=== PATIENT | male | born 1975 | race Caucasian/White ===

== ENCOUNTER 2020-04-01 13:08 | Outpatient (REF) | payer OTHER, SELFPAY ==
[2020-04-01 14:01] LABS: MANUAL DIFF FLAG NO
--- NOTE | 2020-04-01 14:05 | XR_ITS ---
EXAMINATION: XR HAND, RIGHT CLINICAL INFORMATION: Pain. COMPARISON: None TECHNIQUE: PA, lateral, and oblique views of the right hand. FINDINGS: The bones and soft tissues are normal. No fracture. Alignment is anatomic, with a slight ulnar positive variance. Joint spaces are maintained. The ulnar styloid is intact, and there is no peritoneal osteopenia. No erosions or soft tissue calcifications. IMPRESSION: Unremarkable right hand.
[2020-04-01 14:09] LABS: Basophils Percent Auto 0.7 % (0-2); Eosinophils Absolute Auto 0.1 X10*3/uL (0.0-0.4); Eosinophils Percent Auto 1.1 % (0-4); Hematocrit 44.2 % (42-52); Hemoglobin 14.4 g/dl (14.0-18.0); Imm Gran Abs Auto 0.02 X10*3/uL (0.00-0.03); Imm Gran Pct Auto 0.4 % (0.0-0.4); Lymphocytes Absolute Auto 1.7 X10*3/uL (1.2-4.9); Lymphocytes Percent Auto 31.2 % (20-40); Mean Corpuscular HGB Conc 32.6 g/dl (31.0-36.0); Mean Corpuscular Hemoglobin 29.6 pg (27.0-33.0); Mean Corpuscular Volume 90.9 fL (80-98); Mean Platelet Volume 9.3 fL (9.4-12.4); Monocytes Absolute Auto 0.4 X10*3/uL (0.1-1.2); Monocytes Percent Auto 6.5 % (2-11); Neutrophils Absolute Auto 3.3 X10*3/uL (2.0-8.3); Neutrophils Percent Auto 60.1 % (45-73); Platelet Count 268 X10*3/uL (160-400); Red Blood Count 4.86 X10*6/uL (4.60-5.80); Red Cell Distribution Width 11.8 % (11.0-16.0); White Blood Count 5.5 X10*3/uL (4.8-10.8)
[2020-04-01 14:42] LABS: Blood Urea Nitrogen 14 mg/dL (9-16); Calcium 9.4 mg/dL (8.4-10.2); Cholesterol 211 mg/dL; Estimated Glomerular Filt Rate > 60; Glucose Fasting 96 mg/dL (60-99); HDL Cholesterol 45 mg/dL; LDL Cholesterol Calculated 150 mg/dl; Triglycerides 83 mg/dL
[2020-04-01 14:53] LABS: Anion Gap 13 (12-20); Carbon Dioxide 27 mmol/L (22-29); Chloride 104 mmol/L (96-108); Potassium 4.6 mmol/l (3.3-5.1); Sodium 139 mmol/L (135-145)
[2020-04-01 14:59] LABS: TSH reflex Free T4 2.42 mIU/mL (0.32-4.0)
[2020-04-01 16:53] LABS: Reflex LDLD? No
== END 2020-04-01 13:09 | disposition home or self-care (01) ==
LOC: HO.LAB 13:08
PROVIDERS: PCP Internal Medicine; Visit Provider Nurse Practitioner Family
DX: I10 Essential (primary) hypertension (principal); E78.2 Mixed hyperlipidemia; M79.641 Pain in right hand
CPT/HCPCS: 36415; 73130; 80048; 80061; 84443; 85025

== ENCOUNTER 2020-05-16 12:10 | Emergency (ER) | payer OTHER, SELFPAY ==
--- NOTE | 2020-05-16 | ECG_ITS ---
Test Reason : CHEST PAIN Blood Pressure : / mmHG Vent. Rate : 089 BPM Atrial Rate : 089 BPM P-R Int : 122 ms QRS Dur : 084 ms QT Int : 348 ms P-R-T Axes : 045 052 035 degrees QTc Int : 423 ms Normal sinus rhythm Normal ECG When compared with ECG of 17-MAR-2018 17:45, No significant change was found Referred By: Generic ED Physician Electronically Signed By:JOSAFAT BACH MD
[2020-05-16 12:33] VITALS: BMI 26.6
--- NOTE | 2020-05-16 13:06 | ED_ITS ---
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 He denies any associated shortness of breath. No injury, fall. No palpitation. No lower extremity swelling. Related Data Allergies Allergy/AdvReac Type Severity Reaction Status Date / Time enalaprilat [From VASOTEC] Allergy Severe ANAPHYLAXIS Verified 05/16/20 13:25 naproxen Allergy Unknown stomach Verified 05/16/20 13:25 upset tramadol [TRAMADOL] Allergy Unknown ANXIOUS, Verified 05/16/20 13:25 vomiting Review of Systems Review of Systems: Constitutional: No Weight loss, No Fever, No Chills, No Night Sweats, No Fatigue, No Malaise ENT/Mouth: No Hearing loss, No Ear Pain, No Nasal Congestion, No Sinus Pain, No Hoarseness, No sore throat, No Rhinorrhea, No Swallowing Difficulty Eyes: No Eye Pain, No Swelling, No Redness, No Foreign Body, No Discharge, No Vision Changes Cardiovascular: + Chest Pain, No SOB, No Dyspnea on Exertion, No Orthopnea, No Edema, No Palpitations Respiratory: No Cough, No Sputum, No Wheezing, No Smoke Exposure, No Dyspnea Gastrointestinal: No Nausea, No Vomiting, No Diarrhea, No Constipation, No abdominal Pain, No Hematochezia, No Melena Genitourinary: no irregular bleeding, No Dysuria Musculoskeletal: No joint pain, No Myalgias, No Joint Swelling Skin: No Skin Lesions, No rash Neuro: No Weakness, No Numbness, No Paresthesias, No Loss of Consciousness, No Dizziness, No Headache Psych: No Anxiety/Panic Heme/Lymph: No Bruising, No Bleeding,No Lymphadenopathy Endocrine: No Polyuria, No Polydipsia, No Temperature Intolerance Yes all other systems are reviewed and are negative PMFSH Past Medical History Medical History (Updated 05/16/20 @ 15:56 by Cale Flanagan NP) HTN (hypertension) Social History Social History Alcohol intake: never Smoking Status: Light tobacco smoker Smoked in Last 30 Days: No Use of substances other than those prescribed or required for medical reasons: No Advance Directives: No Advance Directives Information Provided: No Physical Exam Vital Signs: Vital Signs: Last Vital Signs Temp 97.9 F 05/16/20 15:24 Pulse 87 05/16/20 15:24 Resp 15 05/16/20 15:24 BP 125/81 05/16/20 15:24 Pulse Ox 99 05/16/20 15:24 Body Mass Index 26.6 Reviewed Const: General: cooperative and healthy appearing; No acute distress or intoxicated appearing Nutritional Appearance: average body habitus Orientation/consciousness: patient oriented x3 HENMT: Head: Yes normal to inspection Ears: hearing grossly normal bilaterally Eyes: General: appearance normal, both eyes and all related structures V isual Mallory: normal visual mallory by confrontation Neck: Neck: Yes normal visual inspection, No positive Brudzinski's sign, No positive Kernig's sign and No tender Thyroid: Thyroid normal Chest: Chest palpation & inspection: normal inspection of the chest Resp: Effort & Inspection: normal respiratory effort Cardio: Jugular venous distension: no JVD GI: Inspection: Yes normal to inspection Percussion: Yes normal to p ercussion Auscultation: normal bowel sounds : General: Yes no CVA tenderness Back/Spine/Pelvis: Back: no CVA tenderness Skin: General skin exam: no rashes or lesions noted Neuro: General: patient oriented x3 Extrem: General: Yes normal to inspection MDM - Chest Pain MDM Narrative Medical decision making narrative: AP exam consistent with pain musculoskeletal in etiology and less cardiopulmonary. Pain reproducible on exam. Labs, chest x-ray, EKG reassuring. Patient does do a lot of strenuous activity at work where he does a lot of twisting and lifting repetitively throughout the day encouraged to do pre works stretching and warm. Clear precaution return follow- up instructions provided. Patient is stable for discharge. Differential Diagnosis Differential diagnosis: Likely atypical chest pain, costochondritis and chest pain; Unlikely fracture of rib, pneumothorax, stable angina, unstable angina pectoris, st elevation myocardial infarction and biliary colic Medical Records Data Attestation: I reviewed the patient's medical records. Lab Data Attestation: I reviewed the patient's lab results. Result diagrams: 05/16/20 14:14 05/16/20 14:14 Labs: Lab Results 05/16/20 05/16/20 05/16/20 Range/Units 14:14 14:14 14:14 WBC 6.3 (4.8-10.8) X10*3/uL RBC 5.11 (4.60-5.80) X10*6/uL Hgb 15.5 (14.0-18.0) g/dl Hct 46.5 (42-52) % MCV 91.0 (80-98) fL MCH 30.3 (27.0-33.0) pg MCHC 33.3 (31.0-36.0) g/dl RDW 12.1 (11.0-16.0) % Plt Count 279 (160-400) X10*3/uL MPV 9.5 (9.4-12.4) fL Immature Gran % (Auto) 1.0 H (0.0-0.4) % Neut % (Auto) 62.6 (45-73) % Lymph % (Auto) 30.2 (20-40) % [place] % (Auto) 5.4 (2-11) % Eos % (Auto) 0.3 (0-4) % Baso % (Auto) 0.5 (0-2) % Lymph # (Auto) 1.9 (1.2-4.9) X10*3/uL [place] # (Auto) 0.3 (0.1-1.2) X10*3/uL Eos # (Auto) 0.0 (0.0-0.4) X10*3/uL Baso # (Auto) 0.0 (0.0-0.2) X10*3/uL Abs Immat Gran (auto) 0.06 H (0.00-0.03) X10*3/uL Absolute Neuts (auto) 3.9 (2.0-8.3) X10*3/uL Absolute Nucleated RBC 0.000 (0.0-0.012) X10*3/uL Nucleated RBC % (auto) 0.0 (0.0-0.2) /100WBC Sodium 137 (135-145) mmol/L Potassium 4.9 (3.3-5.1) mmol/l Chloride 101 (96-108) mmol/L Carbon Dioxide 30 H (22-29) mmol/L Anion Gap 11 L (12-20) BUN 15 (9-16) mg/dL Creatinine 0.92 (0.5-1.4) mg/dL Estim Creat Clear Calc 102.4 Estimated GFR > 60 Random Glucose 103 (60-115) mg/dL Calcium 9.8 (8.4-10.2) mg/dL Total Bilirubin 0.4 (0.0-1.0) mg/dL AST 20 (5-37) U/L ALT 24 (0-40) U/L Alkaline Phosphatase 74 (39-117) U/L Troponin I High Sens < 3.5 (<3.5-35.0) ng/L Total Protein 8.0 (6.5-8.0) g/dL Albumin 4.8 (3.5-5.0) g/dL Imaging Data Chest x-ray: Radiologist's impression: [place] [id number] XRay Report Signed Patient: Chelsea Bustamante#: [id number] : 1975Acct:[id number] Age/Sex: 45 / MADM Date: 05/16/20 Loc: .ED Attending Dr: Ordering Physician: Cale Flanagan NP Date of Service: 05/16/20 Procedure(s): XR chest 2V Accession Number(s): [id number] cc: Cale Flanagan [employer]~ EXAMINATION: XR CHEST CLINICAL INFORMATION: Chest wall pain COMPARISON: Chest radiographs 03/17/2018, 03/01/2017 TECHNIQUE: 2 views of the chest were obtained. FINDINGS: The lungs are clear. There is no pneumothorax, pleural reaction, infiltrate, or effusion. The costophrenic sulci are clear. The heart is normal in size. The hilar and mediastinal contours are normal. Bony structures are unremarkable. XR/XR chest 2V IMPRESSION: Unremarkable examination. 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
--- NOTE | 2020-05-16 13:19 | XR_ITS ---
EXAMINATION: XR CHEST CLINICAL INFORMATION: Chest wall pain COMPARISON: Chest radiographs 03/17/2018, 03/01/2017 TECHNIQUE: 2 views of the chest were obtained. FINDINGS: The lungs are clear. There is no pneumothorax, pleural reaction, infiltrate, or effusion. The costophrenic sulci are clear. The heart is normal in size. The hilar and mediastinal contours are normal. Bony structures are unremarkable. XR/XR chest 2V IMPRESSION: Unremarkable examination.
[2020-05-16 13:20] VITALS: BP 134/89; PULSE 92; RESP 18; TEMP 36.8; O2SAT 98; BMI 26.6
[2020-05-16 13:27] VITALS: PULSE 92
[2020-05-16 14:26] LABS: MANUAL DIFF FLAG NO
[2020-05-16 14:28] LABS: Basophils Percent Auto 0.5 % (0-2); Eosinophils Percent Auto 0.3 % (0-4); Hematocrit 46.5 % (42-52); Hemoglobin 15.5 g/dl (14.0-18.0); Imm Gran Abs Auto 0.06 X10*3/uL (0.00-0.03); Lymphocytes Absolute Auto 1.9 X10*3/uL (1.2-4.9); Lymphocytes Percent Auto 30.2 % (20-40); Mean Corpuscular HGB Conc 33.3 g/dl (31.0-36.0); Mean Corpuscular Hemoglobin 30.3 pg (27.0-33.0); Mean Platelet Volume 9.5 fL (9.4-12.4); Monocytes Absolute Auto 0.3 X10*3/uL (0.1-1.2); Monocytes Percent Auto 5.4 % (2-11); Neutrophils Absolute Auto 3.9 X10*3/uL (2.0-8.3); Neutrophils Percent Auto 62.6 % (45-73); Platelet Count 279 X10*3/uL (160-400); Red Blood Count 5.11 X10*6/uL (4.60-5.80); Red Cell Distribution Width 12.1 % (11.0-16.0); White Blood Count 6.3 X10*3/uL (4.8-10.8)
[2020-05-16 14:59] LABS: Alanine Aminotransferase 24 U/L (0-40); Albumin Level 4.8 g/dL (3.5-5.0); Alkaline Phosphatase 74 U/L (39-117); Anion Gap 11 (12-20); Aspartate Amino Transferase 20 U/L (5-37); Bilirubin Total 0.4 mg/dL (0.0-1.0); Blood Urea Nitrogen 15 mg/dL (9-16); Calcium 9.8 mg/dL (8.4-10.2); Carbon Dioxide 30 mmol/L (22-29); Chloride 101 mmol/L (96-108); Creatinine Clr Calc Pharmacy 102.4; Estimated Glomerular Filt Rate > 60; Glucose Random 103 mg/dL (60-115); Potassium 4.9 mmol/l (3.3-5.1); Sodium 137 mmol/L (135-145)
[2020-05-16 15:05] LABS: Troponin-I High Sensitivity < 3.5 ng/L (<3.5-35.0)
[2020-05-16 15:24] VITALS: BP 125/81; PULSE 87; RESP 15; TEMP 36.6; O2SAT 99
== END 2020-05-16 16:33 | disposition home or self-care (01) ==
PROVIDERS: Nurse Practitioner Primary Care; Emergency Provider Emergency Medicine; PCP Internal Medicine
DX: M94.0 Chondrocostal junction syndrome [Tietze] (principal); R07.89 Other chest pain; F17.200 Nicotine dependence, unspecified, uncomplicated; Z71.6 Tobacco abuse counseling
CPT/HCPCS: 36415; 71046; 80053; 84484; 85025; 93005; 99283; 99285

== ENCOUNTER 2020-10-03 19:43 | Emergency (ER) | payer OTHER, SELFPAY ==
--- NOTE | ~2020-10-03 | CT_ITS ---
EXAMINATION: CT HEAD WITHOUT CONTRAST CLINICAL INFORMATION: Severely headache COMPARISON: None TECHNIQUE: Contiguous axial imaging was performed from the skull base to vertex without intravenous administration of contrast. This CT examination was performed using dose optimization techniques as appropriate, variously including the following: *Automated exposure control *Adjustment of mA and/or kV according to patient size (this includes techniques or standardized protocols for targeted exams where dose is matched to indication/reason for exam; i.e. extremities or head) *Use of iterative reconstruction technique DLP: 695 mGy-cm FINDINGS: There is no evidence of acute intracranial hemorrhage or territorial infarction. No abnormal mass effect or midline shift is seen. [place] to white matter differentiation is well preserved. No extra-axial fluid collections are identified. The ventricles are normal in size. There is no abnormal attenuation within the brain parenchyma. The osseous structures and soft tissues are normal. The mastoid air cells and visualized portions of the paranasal sinuses are well aerated. Bilateral moderate sized maxillary cysts or polyps CT/CT head/brain wo con IMPRESSION: No acute intracranial process seen
[2020-10-03 20:43] VITALS: BP 127/87; PULSE 87; RESP 12; TEMP 36.2; O2SAT 99; BMI 28.9
[2020-10-03 21:04] LABS: MANUAL DIFF FLAG NO
[2020-10-03 21:06] LABS: Basophils Percent Auto 0.6 % (0-2); Eosinophils Absolute Auto 0.1 X10*3/uL (0.0-0.4); Eosinophils Percent Auto 0.8 % (0-4); Hematocrit 48.7 % (42-52); Hemoglobin 15.9 g/dl (14.0-18.0); Imm Gran Abs Auto 0.06 X10*3/uL (0.00-0.03); Imm Gran Pct Auto 0.8 % (0.0-0.4); Lymphocytes Absolute Auto 2.5 X10*3/uL (1.2-4.9); Lymphocytes Percent Auto 35.4 % (20-40); Mean Corpuscular HGB Conc 32.6 g/dl (31.0-36.0); Mean Corpuscular Hemoglobin 29.7 pg (27.0-33.0); Mean Platelet Volume 9.3 fL (9.4-12.4); Monocytes Absolute Auto 0.5 X10*3/uL (0.1-1.2); Monocytes Percent Auto 6.9 % (2-11); Neutrophils Absolute Auto 3.9 X10*3/uL (2.0-8.3); Neutrophils Percent Auto 55.5 % (45-73); Platelet Count 267 X10*3/uL (160-400); Red Blood Count 5.35 X10*6/uL (4.60-5.80); Red Cell Distribution Width 11.9 % (11.0-16.0); White Blood Count 7.1 X10*3/uL (4.8-10.8)
[2020-10-03 21:21] LABS: Anion Gap 10 (12-20); Blood Urea Nitrogen 12 mg/dL (9-16); Calcium 9.4 mg/dL (8.4-10.2); Carbon Dioxide 31 mmol/L (22-29); Chloride 101 mmol/L (96-108); Estimated Glomerular Filt Rate > 60; Glucose Random 89 mg/dL (60-115); Potassium 4.3 mmol/L (3.3-5.1); Sodium 138 mmol/L (135-145)
[2020-10-03 21:24] LABS: INTERNATIONAL NORM RATIO 1.1 (0.9-1.1); Prothrombin Time 12.6 SEC (10.8-13.0)
[2020-10-03 21:28] LABS: Troponin-I High Sensitivity < 3.5 ng/L (<3.5-35.0)
[2020-10-03 21:34] LABS: Stroke Lab Use COMPLETE
--- NOTE | 2020-10-03 21:39 | ED.DIZZY ---
HPI - Dizziness General Chief Complaint: Dizziness Stated Complaint: DIZZINESS Time Seen by Provider: 10/03/20 21:38 Source: patient Mode of arrival: ambulatory Limitations: no limitations History of Present Illness MD elicited complaint: dizziness Related Data Previous Rx's Medication Instructions Recorded lisinopril 10 mg tablet 10 mg PO DAILY 90 Days #90 tab 07/15/20 prednisone 20 mg tablet 20 mg PO DAILY 9 Days #18 tab 08/05/20 Allergies Allergy/AdvReac Type Severity Reaction Status Date / Time enalaprilat [From VASOTEC] Allergy Severe ANAPHYLAXIS Verified 10/03/20 20:43 naproxen Allergy Unknown stomach Verified 10/03/20 20:43 upset tramadol [TRAMADOL] Allergy Unknown ANXIOUS, Verified 10/03/20 20:43 vomiting PMFSH Past Medical History Medical History (Updated 08/06/20 @ 09:18 by Liss Hernandez NP) HTN (hypertension) Social History Social History Alcohol intake: never Smoking Status: Light tobacco smoker Advance Directives: No Advance Directives Information Provided: No Physical Exam Vital Signs: Vital Signs: Last Vital Signs Temp 97.1 F 10/03/20 20:43 Pulse 87 10/03/20 20:43 Resp 12 10/03/20 20:43 BP 127/87 10/03/20 20:43 Pulse Ox 99 10/03/20 20:43 Body Mass Index 28.9 MDM - Dizziness Lab Data Result diagrams: 10/03/20 20:59 10/03/20 20:59 Labs: Lab Results 10/03/20 10/03/20 10/03/20 Range/Units 20:59 20:59 20:59 WBC 7.1 (4.8-10.8) X10*3/uL RBC 5.35 (4.60-5.80) X10*6/uL Hgb 15.9 (14.0-18.0) g/dl Hct 48.7 (42-52) % MCV 91.0 (80-98) fL MCH 29.7 (27.0-33.0) pg MCHC 32.6 (31.0-36.0) g/dl RDW 11.9 (11.0-16.0) % Plt Count 267 (160-400) X10*3/uL MPV 9.3 L (9.4-12.4) fL Immature Gran % (Auto) 0.8 H (0.0-0.4) % Neut % (Auto) 55.5 (45-73) % Lymph % (Auto) 35.4 (20-40) % [place] % (Auto) 6.9 (2-11) % Eos % (Auto) 0.8 (0-4) % Baso % (Auto) 0.6 (0-2) % Lymph # (Auto) 2.5 (1.2-4.9) X10*3/uL [place] # (Auto) 0.5 (0.1-1.2) X10*3/uL Eos # (Auto) 0.1 (0.0-0.4) X10*3/uL Baso # (Auto) 0.0 (0.0-0.2) X10*3/uL Abs Immat Gran (auto) 0.06 H (0.00-0.03) X10*3/uL Absolute Neuts (auto) 3.9 (2.0-8.3) X10*3/uL Absolute Nucleated RBC 0.000 (0.0-0.012) X10*3/uL Nucleated RBC % (auto) 0.0 (0.0-0.2) /100WBC PT 12.6 (10.8-13.0) SEC INR 1.1 (0.9-1.1) Sodium 138 (135-145) mmol/L Potassium 4.3 (3.3-5.1) mmol/L Chloride 101 (96-108) mmol/L Carbon Dioxide 31 H (22-29) mmol/L Anion Gap 10 L (12-20) BUN 12 (9-16) mg/dL Creatinine 0.92 (0.5-1.4) mg/dL Estim Creat Clear Calc 113.0 Estimated GFR > 60 Random Glucose 89 (60-115) mg/dL Calcium 9.4 (8.4-10.2) mg/dL Troponin I High Sens (<3.5-35.0) ng/L 10/03/20 Range/Units 20:59 WBC (4.8-10.8) X10*3/uL RBC (4.60-5.80) X10*6/uL Hgb (14.0-18.0) g/dl Hct (42-52) % MCV (80-98) fL MCH (27.0-33.0) pg MCHC (31.0-36.0) g/dl RDW (11.0-16.0) % Plt Count (160-400) X10*3/uL MPV (9.4-12.4) fL Immature Gran % (Auto) (0.0-0.4) % Neut % (Auto) (45-73) % Lymph % (Auto) (20-40) % [place] % (Auto) (2-11) % Eos % (Auto) (0-4) % Baso % (Auto) (0-2) % Lymph # (Auto) (1.2-4.9) X10*3/uL [place] # (Auto) (0.1-1.2) X10*3/uL Eos # (Auto) (0.0-0.4) X10*3/uL Baso # (Auto) (0.0-0.2) X10*3/uL Abs Immat Gran (auto) (0.00-0.03) X10*3/uL Absolute Neuts (auto) (2.0-8.3) X10*3/uL Absolute Nucleated RBC (0.0-0.012) X10*3/uL Nucleated RBC % (auto) (0.0-0.2) /100WBC PT (10.8-13.0) SEC INR (0.9-1.1) Sodium (135-145) mmol/L Potassium (3.3-5.1) mmol/L Chloride (96-108) mmol/L Carbon Dioxide (22-29) mmol/L Anion Gap (12-20) BUN (9-16) mg/dL Creatinine (0.5-1.4) mg/dL Estim Creat Clear Calc Estimated GFR Random Glucose (60-115) mg/dL Calcium (8.4-10.2) mg/dL Troponin I High Sens < 3.5 (<3.5-35.0) ng/L Discharge Plan Discharge Prescriptions: No Action lisinopril 10 mg tablet 10 mg PO DAILY 90 Days Qty: 90 RF: 3 prednisone 20 mg tablet 20 mg PO DAILY 9 Days Qty: 18 RF: 0
[2020-10-03 21:46] VITALS: BP 133/97; PULSE 85; RESP 18; O2SAT 99
[2020-10-03 23:18] VITALS: BP 135/89; PULSE 83; RESP 19; TEMP 36.8; O2SAT 100
--- NOTE | 2020-10-03 23:43 | ED.HA ---
HPI - Headache General Chief Complaint: Dizziness Stated Complaint: DIZZINESS Time Seen by Provider: 10/03/20 21:38 Source: patient Mode of arrival: ambulatory Limitations: no limitations History of Present Illness HPI Narrative: Patient history of hypertension and migraine headaches notice headache top of the head since morning around 08:00 today gradual onset, no thunderclap headache, patient had similar headache in 2017 when he had a CTA head done which was negative patient feel funny in the head evaluated urgent care center blood pressure was checked which was slightly on higher side 140/99 sent patient here for further evaluation no injury no vomiting no nausea no photosensitivity no balance problems no focal deficits MD elicited complaint: headache and migraine Related Data Previous Rx's Medication Instructions Recorded lisinopril 10 mg tablet 10 mg PO DAILY 90 Days #90 tab 07/15/20 prednisone 20 mg tablet 20 mg PO DAILY 9 Days #18 tab 08/05/20 Allergies Allergy/AdvReac Type Severity Reaction Status Date / Time enalaprilat [From VASOTEC] Allergy Severe ANAPHYLAXIS Verified 10/03/20 20:43 naproxen Allergy Unknown stomach Verified 10/03/20 20:43 upset tramadol [TRAMADOL] Allergy Unknown ANXIOUS, Verified 10/03/20 20:43 vomiting Review of Systems Review of Systems: Constitutional : No Weight loss, No Fever, No Chills ENT/Mouth : No sore throat, No Rhinorrhea Eyes: No Eye Pain, No Swelling Cardiovascular : No Chest Pain, no palpitations Respiratory : No Cough, No Sputum, no shortness of breath Gastrointestinal : no Nausea, No Vomiting, No Diarrhea, No abdominal Pain, no black stools Genitourinary : No Dysuria, No Urinary Frequency Musculoskeletal : No joint pain, No Myalgias, No Joint Swelling Skin : No Skin Lesions, No rash Neuro : No Weakness, No Numbness, + Dizziness, +Headache Psych : No Anxiety/Panic, No Depression Heme/Lymph: No Bruising, No Lymphadenopathy Endocrine : No Polyuria, No Polydipsia All other systems reviewed and are negative [facility] Past Medical History Medical History HTN (hypertension) Social History Social History Alcohol intake: never Smoking Status: Unknown if ever smoked Use of substances other than those prescribed or required for medical reasons: No Advance Directives: No Advance Directives Information Provided: No Physical Exam Vital Signs: Vital Signs: Last Vital Signs Temp 98.3 F 10/03/20 23:18 Pulse 83 10/03/20 23:18 Resp 19 10/03/20 23:18 BP 135/89 10/03/20 23:18 Pulse Ox 100 10/03/20 23:18 Body Mass Index 28.9 Const: General: comfortable and no acute distress Orientation/consciousness: patient oriented x3 HENMT: Head: Yes normal to inspection, Yes normocephalic and Yes atraumatic Ears: hearing grossly normal bilaterally General nose exam: Normal external nose present Mouth: Normal oral and palatal mucosa present Eyes: General: appearance normal, both eyes and all related structures Conjunctivae: conjunctivae normal Sclerae: sclerae normal Pupils: Equal, round and reactive pupils present Neck: Neck: Yes normal visual inspection, No midline deformity and Yes no JVD Carotids: normal carotid upstroke and no bruits Chest: Chest palpation & inspection: normal inspection of the chest and normal palpation of entire chest wall Resp: Effort & Inspection: normal respiratory effort Auscultation: clear to auscultation bilaterally Cardio: Palpation: normal PMI Rate: regular rate Rhythm: regular rhythm Heart sounds: S1 normal heart sound present and S2 normal heart sound present Peripheral pulses: Peripheral pulses 2+ throughout GI: Inspection: Yes normal to inspection Palpation (GI): Soft to palpation and nontender : General: Yes no CVA tenderness Back/Spine/Pelvis: Back: no CVA tenderness Thoracic/Lumbar Spine: thoracic and lumbar spine normal to inspection Skin: General skin exam: no rashes or lesions noted Neuro: General: patient oriented x3, gait normal, tone normal, moves all extremities, Normal light touch and pain sensation, no focal motor deficits and CN's II-XI intact bilaterally Cranial nerves: Yes Equal, round and reactive pupils present Coordination: [id number] test normal, tandem gait normal, does not sway with eyes open and Romberg test negative MDM - Headache MDM Narrative Medical decision making narrative: Patient with gradual onset of headache with history of migraine slightly elevated blood pressure CT scan is negative for any acute bleed patient had a CTA done in 2017 which was negative for any aneurysm or bleed. Patient responded to Imitrex headache is gone and patient feeling much better likely complex migraine patient advised to follow-up PCP about blood pressure control Differential Diagnosis Differential diagnosis: Likely migraine, subarachnoid hemorrhage and headache Lab Data Attestation: I reviewed the patient's lab results. Result diagrams: 10/03/20 20:59 10/03/20 20:59 Labs: Lab Results 10/03/20 10/03/20 10/03/20 Range/Units 20:59 20:59 20:59 WBC 7.1 (4.8-10.8) X10*3/uL RBC 5.35 (4.60-5.80) X10*6/uL Hgb 15.9 (14.0-18.0) g/dl Hct 48.7 (42-52) % MCV 91.0 (80-98) fL MCH 29.7 (27.0-33.0) pg MCHC 32.6 (31.0-36.0) g/dl RDW 11.9 (11.0-16.0) % Plt Count 267 (160-400) X10*3/uL MPV 9.3 L (9.4-12.4) fL Immature Gran % (Auto) 0.8 H (0.0-0.4) % Neut % (Auto) 55.5 (45-73) % Lymph % (Auto) 35.4 (20-40) % [place] % (Auto) 6.9 (2-11) % Eos % (Auto) 0.8 (0-4) % Baso % (Auto) 0.6 (0-2) % Lymph # (Auto) 2.5 (1.2-4.9) X10*3/uL [place] # (Auto) 0.5 (0.1-1.2) X10*3/uL Eos # (Auto) 0.1 (0.0-0.4) X10*3/uL Baso # (Auto) 0.0 (0.0-0.2) X10*3/uL Abs Immat Gran (auto) 0.06 H (0.00-0.03) X10*3/uL Absolute Neuts (auto) 3.9 (2.0-8.3) X10*3/uL Absolute Nucleated RBC 0.000 (0.0-0.012) X10*3/uL Nucleated RBC % (auto) 0.0 (0.0-0.2) /100WBC PT 12.6 (10.8-13.0) SEC INR 1.1 (0.9-1.1) Sodium 138 (135-145) mmol/L Potassium 4.3 (3.3-5.1) mmol/L Chloride 101 (96-108) mmol/L Carbon Dioxide 31 H (22-29) mmol/L Anion Gap 10 L (12-20) BUN 12 (9-16) mg/dL Creatinine 0.92 (0.5-1.4) mg/dL Estim Creat Clear Calc 113.0 Estimated GFR > 60 Random Glucose 89 (60-115) mg/dL Calcium 9.4 (8.4-10.2) mg/dL Troponin I High Sens (<3.5-35.0) ng/L 10/03/20 Range/Units 20:59 WBC (4.8-10.8) X10*3/uL RBC (4.60-5.80) X10*6/uL Hgb (14.0-18.0) g/dl Hct (42-52) % MCV (80-98) fL MCH (27.0-33.0) pg MCHC (31.0-36.0) g/dl RDW (11.0-16.0) % Plt Count (160-400) X10*3/uL MPV (9.4-12.4) fL Immature Gran % (Auto) (0.0-0.4) % Neut % (Auto) (45-73) % Lymph % (Auto) (20-40) % [place] % (Auto) (2-11) % Eos % (Auto) (0-4) % Baso % (Auto) (0-2) % Lymph # (Auto) (1.2-4.9) X10*3/uL [place] # (Auto) (0.1-1.2) X10*3/uL Eos # (Auto) (0.0-0.4) X10*3/uL Baso # (Auto) (0.0-0.2) X10*3/uL Abs Immat Gran (auto) (0.00-0.03) X10*3/uL Absolute Neuts (auto) (2.0-8.3) X10*3/uL Absolute Nucleated RBC (0.0-0.012) X10*3/uL Nucleated RBC % (auto) (0.0-0.2) /100WBC PT (10.8-13.0) SEC INR (0.9-1.1) Sodium (135-145) mmol/L Potassium (3.3-5.1) mmol/L Chloride (96-108) mmol/L Carbon Dioxide (22-29) mmol/L Anion Gap (12-20) BUN (9-16) mg/dL Creatinine (0.5-1.4) mg/dL Estim Creat Clear Calc Estimated GFR Random Glucose (60-115) mg/dL Calcium (8.4-10.2) mg/dL Troponin I High Sens < 3.5 (<3.5-35.0) ng/L Discharge Plan Discharge Clinical Impression: Migraine equivalent Patient Disposition: Home, Self-Care Instructions: Migraine Headache (ED) Additional Instructions: You likely have migraine headache. Keep an eye on your blood pressure check blood pressure 2 times daily at least before you take the medication , it should be less than 140/90 if it is higher than that, increase the dose of lisinopril to 20 mg daily and follow-up with your PCP Rest at home Report to ER if worsening of headache Prescriptions: No Action lisinopril 10 mg tablet 10 mg PO DAILY 90 Days Qty: 90 RF: 3 prednisone 20 mg tablet 20 mg PO DAILY 9 Days Qty: 18 RF: 0 Interventions: ED Discharge Assessment Last Done: 10/03/20 23:51 Discharge Date/Time: 10/03/20 23:51
== END 2020-10-03 23:51 | disposition home or self-care (01) ==
PROVIDERS: Emergency Provider Internal Medicine; PCP Internal Medicine
DX: G43.109 Migraine with aura, not intractable, without status migrainosus (principal); R42 Dizziness and giddiness; Z79.899 Other long term (current) drug therapy
CPT/HCPCS: 36415; 70450; 80048; 84484; 85025; 85610; 96372; 99284; J3030

== ENCOUNTER 2021-06-28 18:24 | Outpatient (REF) | payer OTHER, SELFPAY ==
[2021-06-28 19:28] LABS: Influenza A PCR NEGATIVE (Negative); Influenza B PCR NEGATIVE (Negative); Resp Syncy Virus RNA Qual PCR NEGATIVE (Negative); SARS COV2 PCR INHOUSE NEGATIVE (Negative)
== END 2021-06-28 18:25 | disposition home or self-care (01) ==
LOC: HO.LNP 18:24
PROVIDERS: Visit Provider Physician Assistant Medical
DX: J06.9 Acute upper respiratory infection, unspecified (principal); Z20.822 Contact with and (suspected) exposure to COVID-19
CPT/HCPCS: 0241U

== ENCOUNTER 2021-10-06 11:49 | Outpatient (REF) | payer OTHER, SELFPAY ==
--- NOTE | ~2021-10-06 | XR_ITS ---
EXAMINATION: XR LUMBOSACRAL SPINE CLINICAL INFORMATION: Low back pain. COMPARISON: None TECHNIQUE: Three views of the lumbosacral spine. FINDINGS: There are 5 [id number] lumbar vertebrae. Bony texture and alignment is satisfactory. There is mild narrowing of the L5-S1 disc space. There is some sclerosis about the right L5-S1 facet consistent with facet arthropathy. No significant sacroiliac joint abnormality is seen. Pedicles intact. XR/XR lumbar spine 2-3V IMPRESSION: Degenerative change L5-S1 disc space level. No acute fracture, spondylolisthesis, or spondylolysis.
== END 2021-10-06 11:50 | disposition home or self-care (01) ==
LOC: HO.XRAY 11:49
PROVIDERS: PCP Internal Medicine; Visit Provider Nurse Practitioner Acute Care
DX: M54.50 Low back pain, unspecified (principal)
CPT/HCPCS: 72100

== ENCOUNTER 2021-10-07 08:11 | Outpatient (REF) | payer OTHER, SELFPAY ==
[2021-10-07 08:22] LABS: MANUAL DIFF FLAG NO
[2021-10-07 09:25] LABS: Basophils Percent Auto 0.5 % (0-2); Eosinophils Absolute Auto 0.1 X10*3/uL (0.0-0.4); Eosinophils Percent Auto 1.3 % (0-4); Hematocrit 46.3 % (42.0-52.0); Hemoglobin 15.1 g/dl (14.0-18.0); Imm Gran Abs Auto 0.03 X10*3/uL (0.00-0.03); Imm Gran Pct Auto 0.4 % (0.0-0.4); Lymphocytes Absolute Auto 2.5 X10*3/uL (1.2-4.9); Lymphocytes Percent Auto 33.1 % (20-40); Mean Corpuscular HGB Conc 32.6 g/dl (31.0-36.0); Mean Corpuscular Hemoglobin 30.2 pg (27.0-33.0); Mean Corpuscular Volume 92.6 fL (80.0-98.0); Mean Platelet Volume 9.6 fL (9.4-12.4); Monocytes Absolute Auto 0.6 X10*3/uL (0.1-1.2); Monocytes Percent Auto 8.1 % (2-11); Neutrophils Absolute Auto 4.3 x10*3/uL (2.0-8.3); Neutrophils Percent Auto 56.6 % (45-73); Platelet Count 308 X10*3/uL (160-400); Red Cell Distribution Width 12.5 % (11.0-16.0); White Blood Count 7.5 X10*3/uL (4.8-10.8)
[2021-10-07 09:48] LABS: Alanine Aminotransferase 24 U/L (0-40); Albumin Level 4.7 g/dL (3.5-5.0); Alkaline Phosphatase 72 U/L (39-117); Anion Gap 15 (12-20); Aspartate Amino Transferase 23 U/L (5-37); Bilirubin Total 0.7 mg/dL (0.0-1.0); Blood Urea Nitrogen 15 mg/dL (9-16); Calcium 9.9 mg/dL (8.4-10.2); Carbon Dioxide 27 mmol/L (22-29); Chloride 103 mmol/L (96-108); Cholesterol 260 mg/dL; Estimated Glomerular Filt Rate > 60; Glucose Random 98 mg/dL (60-115); HDL Cholesterol 50 mg/dL; LDL Cholesterol Calculated 187 mg/dl; Lipase 20 U/L (8-78); Potassium 5.1 mmol/L (3.3-5.1); Sodium 140 mmol/L (135-145); Total Protein 8.1 g/dL (6.5-8.0); Triglycerides 115 mg/dL
== END 2021-10-07 08:12 | disposition home or self-care (01) ==
LOC: HO.LAB 08:11
PROVIDERS: Absent Provider Nurse Practitioner Acute Care; PCP Internal Medicine; Visit Provider Internal Medicine
DX: R10.11 Right upper quadrant pain (principal)
CPT/HCPCS: 36415; 80053; 80061; 83690; 85025

== ENCOUNTER 2021-12-07 08:31 | Outpatient (REF) | payer OTHER, SELFPAY ==
--- NOTE | ~2021-12-07 | US_ITS ---
EXAMINATION: US ABDOMEN COMPLETE CLINICAL INFORMATION: Right upper quadrant pain. COMPARISON: None TECHNIQUE: Real-time imaging of the abdominal viscera. FINDINGS: PANCREAS: Normal. ABDOMINAL AORTA: The proximal, mid, and distal segments are normal in caliber. INFERIOR VENA CAVA: Visualized portions are normal. LIVER: Liver echotexture is increased probably representing fatty infiltration. There is a hypoechoic area adjacent to the gallbladder, characteristic location of focal fatty sparing. No other focal hepatic lesion. There is no intrahepatic biliary duct dilatation seen. GALLBLADDER: Normal. The gallbladder is physiologically distended without evidence of stones, sludge, polyps, wall thickening or pericholecystic fluid. COMMON BILE DUCT: Normal in caliber measuring 0.4 cm in diameter. RIGHT KIDNEY: Normal. No hydronephrosis. No renal calculi or focal parenchymal lesions. The kidney measures 10.7 cm in maximum dimension. LEFT KIDNEY: Normal. No hydronephrosis. No renal calculi or focal parenchymal lesions. The kidney measures 10.7 cm in maximum dimension. SPLEEN: Normal. The spleen measures 9.2 cm in maximum dimension. FREE FLUID: None. US/US abdomen complete IMPRESSION: Fatty liver.
--- NOTE | ~2021-12-07 | XR_ITS ---
EXAMINATION: XR THORACOLUMBAR SPINE CLINICAL INFORMATION: Pain COMPARISON: None TECHNIQUE: 3 views of the thoracic spine including swimmer's view FINDINGS: Bone alignment is normal. No fracture or dislocation is seen. There is degenerative spondylosis of the lower thoracic spine. Disc spaces are normal. Paraspinal soft tissues are normal. XR/XR thoracic spine 2V IMPRESSION: Mild spondylosis of the lower thoracic spine.
== END 2021-12-07 08:32 | disposition home or self-care (01) ==
LOC: HO.US 08:31
PROVIDERS: PCP Internal Medicine; Visit Provider Nurse Practitioner Acute Care
DX: M54.9 Dorsalgia, unspecified (principal); R10.11 Right upper quadrant pain
CPT/HCPCS: 72070; 76700

== ENCOUNTER 2022-09-14 13:51 | Outpatient (REF) | payer OTHER, SELFPAY ==
--- NOTE | ~2022-09-14 | XR_ITS ---
EXAMINATION: XR FOOT, RIGHT CLINICAL INFORMATION: Right foot pain COMPARISON: None available. TECHNIQUE: AP, lateral, and oblique views of the right foot. FINDINGS: Possible periosteal reaction at the base of the third metatarsal may reflect nondisplaced stress fracture. Remaining joint spaces are preserved. XR/XR foot RT 2V IMPRESSION: Possible periosteal reaction at the base of the third metatarsal may reflect nondisplaced stress fracture. Correlation with point tenderness is recommended. Consider MRI for further evaluation.
--- NOTE | ~2022-09-14 | US_ITS ---
EXAMINATION: US ABDOMEN COMPLETE CLINICAL INFORMATION: Right upper quadrant pain. COMPARISON: Ultrasound abdomen complete 12/07/2021. TECHNIQUE: Real-time imaging of the abdominal viscera. FINDINGS: PANCREAS: Normal. ABDOMINAL AORTA: Visualized portions are normal. INFERIOR VENA CAVA: Visualized portions are normal. LIVER: Increased parenchymal echogenicity with focal sparing adjacent to the gallbladder. No suspicious focal lesion. No intrahepatic biliary ductal dilatation. GALLBLADDER: Normal. The gallbladder is physiologically distended without evidence of stones, sludge, polyps, wall thickening or pericholecystic fluid. COMMON BILE DUCT: Normal in caliber measuring 0.6 cm in diameter. RIGHT KIDNEY: Normal. No hydronephrosis. No renal calculi or focal parenchymal lesions. The kidney measures 10.3 cm in maximum dimension. LEFT KIDNEY: Normal. No hydronephrosis. No renal calculi or focal parenchymal lesions. The kidney measures 10.1 cm in maximum dimension. SPLEEN: Normal. The spleen measures 9.8 cm in maximum dimension. FREE FLUID: None. US/US abdomen complete IMPRESSION: Increased liver parenchyma echogenicity suggestive of hepatocellular disease or hepatic steatosis. Otherwise, normal examination.
== END 2022-09-14 13:52 | disposition home or self-care (01) ==
LOC: HO.US 13:51
PROVIDERS: PCP Internal Medicine; Visit Provider Internal Medicine
DX: R10.11 Right upper quadrant pain (principal); M79.671 Pain in right foot
CPT/HCPCS: 73620; 76700

== ENCOUNTER 2022-11-01 08:52 | Outpatient (REF) | payer OTHER, SELFPAY ==
--- NOTE | ~2022-11-01 | MR_ITS ---
EXAMINATION: MR FOOT WITHOUT CONTRAST, RIGHT CLINICAL INFORMATION: Dorsal right foot pain with walking. Pain and swelling. COMPARISON: Right foot radiographs dated 09/14/2022. TECHNIQUE: Multisequence MR imaging of the right foot was obtained without contrast on a high-field strength scanner. FINDINGS: BONE: Articular cartilage thinning with areas of full-thickness loss and underlying subchondral cystic change along the plantar aspect of the 3rd tarsometatarsal joint. No acute fracture. No stress reaction or fracture. No concerning lytic or blastic osseous lesion. No additional abnormal marrow signal. MUSCLES/TENDONS: Mild edema along the myotendinous junction of the abductor hallucis, consistent with a mild strain. No measurable defect. LIGAMENTS: Intact Lisfranc ligament. The plantar plates are intact. SOFT TISSUES: No abnormal soft tissue mass or fluid collection. MR/MR foot RT wo con IMPRESSION: 1. Mild strain of the abductor hallucis myotendinous junction. 2. 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 3. No acute osseous abnormality.
== END 2022-11-01 08:53 | disposition home or self-care (01) ==
LOC: HO.MRI 08:52
PROVIDERS: PCP Internal Medicine; Visit Provider Internal Medicine
DX: M79.671 Pain in right foot (principal); M84.30XA Stress fracture, unspecified site, initial encounter for fracture; X58.XXXA Exposure to other specified factors, initial encounter; Y93.9 Activity, unspecified; Y92.9 Unspecified place or not applicable; Y99.9 Unspecified external cause status
CPT/HCPCS: 73718

== ENCOUNTER 2022-11-06 10:16 | Emergency (ER) | payer OTHER, SELFPAY ==
--- NOTE | ~2022-11-06 | XR_ITS ---
EXAMINATION: XR CHEST CLINICAL INFORMATION: Chest pressure with increased coughing COMPARISON: None available. TECHNIQUE: Frontal view of the chest was obtained. FINDINGS: No significant abnormality is noted involving the heart, lungs, mediastinum, bony thorax or soft tissues. XR/XR chest 1V IMPRESSION: Unremarkable chest examination
--- NOTE | 2022-11-06 10:19 | ECG_ITS ---
Test Reason : CHEST PRESSURE Blood Pressure : / mmHG Vent. Rate : 094 BPM Atrial Rate : 094 BPM P-R Int : 126 ms QRS Dur : 074 ms QT Int : 338 ms P-R-T Axes : 031 043 023 degrees QTc Int : 422 ms Normal sinus rhythm Normal ECG When compared with ECG of 16-MAY-2020 12:35, No significant change was found Referred By: Generic ED Physician Electronically Signed By:DOLORES DAWKINS
[2022-11-06 10:20] VITALS: BP 143/89; PULSE 106; RESP 16; TEMP 36.6; O2SAT 96; BMI 26.5
--- NOTE | 2022-11-06 10:53 | ED_ITS ---
HPI - General Adult General Chief complaint: General Medical Stated complaint: Chest pressure/Allergies Time Seen by Provider: 11/06/22 10:52 Source: patient and family Limitations: no limitations History of Present Illness HPI narrative: 47-year-old male who presents to the ER with family member with a week-long history of nasal congestion cough worsening allergies. Family patient states longstanding history of allergies but no relief with [id number] medications. Patient is not prescribed any prescription strength allergy medication. Patient states cough is productive for sputum that is yellow in nature no known sick contacts. Patient denies tobacco use or alcohol use. Symptoms mild to moderate. At times patient has some chest wall discomfort with coughing. No recent travel history. No other complaints at this time Related Data Previous Rx's Medication Instructions Recorded acetaminophen 500 mg tablet 1,000 mg PO Q6H PRN pain #30 tabs 10/06/21 (Acetaminophen Extra Strength) ibuprofen 600 mg tablet 600 mg PO Q8H PRN pain #30 tabs 10/06/21 lisinopril 10 mg tablet 10 mg PO DAILY 90 days #90 tabs 08/07/22 omeprazole 20 mg capsule,delayed 20 mg PO DAILY 90 days #90 caps 08/23/22 release fexofenadine 180 mg tablet 180 mg PO DAILY #30 tabs 11/06/22 (Lauryn Allergy) prednisone 20 mg tablet 40 mg PO DAILY 5 days #10 tabs 11/06/22 Allergies Allergy/AdvReac Type Severity Reaction Status Date / Time enalaprilat [From VASOTEC] Allergy Severe ANAPHYLAXIS Verified 08/23/22 17:24 naproxen Allergy Unknown stomach Verified 08/23/22 17:24 upset tramadol [TRAMADOL] Allergy Unknown ANXIOUS, Verified 08/23/22 17:24 vomiting Review of Systems Review of Systems: General: No fever, no chills Ophthalmology: No vision changes, no discharge ENT: No sore throat, no ear pain Cardiovascular: Positive chest wall pain with coughing, no shortness of breath Respiratory: Positive cough, positive sputum production Muscle skeletal: No malaise, no back pain, no neck pain, no extremity pain GI: No abdominal pain: no nausea vomiting, no diarrhea : No dysuria, no urgency, no frequency Psychiatric: No depression, no suicidal ideation, no homicidal ideation Skin: No rash Immunology: No immunocompromised Hematology: No bleeding, no bruising PMFSH Past Medical History Source: obtained from family Medical History Dyslipidemia Essential hypertension Headache HTN (hypertension) Surgical History No pertinent past surgical history Family History Family History Father Diabetes Hypertension Mother Diabetes Other Mental health disorder Substance use disorder Social History Social History Housing: Apartment Alcohol intake: never Patient Tobacco Use Status: Never used Tobacco Smoked in Last 30 Days: No e-Cigarette/Vaping Use: Never Used Second Hand Smoke Exposure: No Use of substances other than those prescribed or required for medical reasons: No Advance Directives: No Advance Directives Information Provided: Yes service: No Current occupational status: employed 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 Cognitive needs: No Hearing needs: No Vision needs: Yes (glasses) Physical Exam ED Vital Signs: Vital Signs - 24 hr 11/06/22 10:20 Temperature 97.8 F Pulse Rate 106 H Respiratory Rate 16 Blood Pressure 143/89 H Pulse Oximetry 96 Oxygen Delivery Method Room Air BMI result Body Mass Index 26.5 General appearance: Awake, alert, cooperative, in no acute distress Skin: Warm, dry, no rash Eyes: PERRL, EOMI, no icterus ENT: Oropharynx normal, uvula midline, sinus pressure nasal discharge, no evidence of peritonsillar abscess no erythema or exudate Neck: Soft supple full range of motion, no nuchal rigidity Pulmonary: Breath sounds clear to auscultation bilaterally, no accessory muscle use Cardiovascular: Regular rate and rhythm, no murmurs and rubs Abdomen: Soft nontender, no rebound or guarding, positive bowel sounds Extremities: No deformity, nontender, no peripheral edema noted Neuro: Alert oriented x3, no focal deficit Psych: Normal affect Course Course Course Narrative: Seasonal allergies Viral URI Bronchitis Pneumonia 47-year-old male presents to the ER with complaints of nasal congestion associated cough for 1-2 weeks. Worsening over the past 24-48 hours. No recent sick contacts. Symptoms seem consistent with seasonal allergies at this time. Chest x-rays pending rule out pneumonia respiratory swab for COVID-19 a and influenza is also pending. Low suspicion for ACS at this time. Patient does have a history of hypertension which she is on lisinopril for he believes. ECG results Normal sinus rhythm Normal ECG When compared with ECG of 16-MAY-2020 12:35, No significant change was found 13:36 Chest x-rays negative. Respiratory swab was also negative. Patient's symptoms are most likely secondary to seasonal allergies with questionable underlying viral illness. Will treat symptoms at this time. Medical Decision Making Lab Data Labs: Lab Results 11/06/22 11/06/22 Range/Units 10:30 10:30 COVID-19 (MARCIA) Negative (Negative) COVID-19 Clin Com See Note Influenza Type A (INDIGO) Negative (Negative) Influenza Type B (INDIGO) Negative (Negative) Influenza A & B Note See Note Radiology Impression Discussion of test interpretation with radiology: I have reviewed the radiologist's reading. Radiologist Impression: [address] [address] XRay Report Signed Patient: Salo Bustamante MR#: [id number] : 1975 Acct:[id number] Age/Sex: 47 / M ADM Date: 11/06/22 Loc: .ED Attending Dr: Ordering Physician: Chaim Grullon MD Date of Service: 11/06/22 Procedure(s): XR chest 1V Accession Number(s): [id number] cc: Chaim Grullon MD~ EXAMINATION: XR CHEST CLINICAL INFORMATION: Chest pressure with increased coughing COMPARISON: None available. TECHNIQUE: Frontal view of the chest was obtained. FINDINGS: No significant abnormality is noted involving the heart, lungs, mediastinum, bony thorax or soft tissues. XR/XR chest 1V IMPRESSION: Unremarkable chest examination ? Dictated By: Du Acharya MD Signed By: <Electronically signed by Du Acharya MD in OV> 11/06/22 1327 DD/ 1100 TD/TT:? Account Resolution Analyst[place] [facility] [place] Discharge Clinical Impression: Acute seasonal allergic rhinitis, Upper respiratory infection, viral Patient Disposition: Home, Self-Care Instructions: Allergic Rhinitis (ED) Additional Instructions: Your chest x-ray is negative for pneumonia Rest per swab was negative for influenza and COVID-19 Symptoms seem consistent with seasonal allergies and question underlying viral URI Call PCP for follow-up Return if symptoms worsen Prescriptions: New fexofenadine [Lauryn Allergy] 180 mg tablet 180 mg PO DAILY Qty: 30 0RF prednisone 20 mg tablet 40 mg PO DAILY 5 Days Qty: 10 0RF No Action lisinopril 10 mg tablet 10 mg PO DAILY 90 Days Qty: 90 3RF acetaminophen [Acetaminophen Extra Strength] 500 mg tablet 1,000 mg PO Q6H PRN (Reason: pain) Qty: 30 0RF ibuprofen 600 mg tablet 600 mg PO Q8H PRN (Reason: pain) Qty: 30 0RF omeprazole 20 mg capsule,delayed release(DR/EC) 20 mg PO DAILY 90 Days Qty: 90 1RF Stand Alone Forms: Work/School Release Print Language: Upper Sorbian
--- NOTE | 2022-11-06 11:04 | PC.NURSE ---
Patient presenting with increased nasal congestion and cough for the past week. Patient states that he does have seasonal allergies but this is worse now than previous years. Patient with clear lung sounds and no difficulty breathing at this time.
[2022-11-06 11:13] LABS: COVID-19 Test Negative (Negative); IDNOW Serial# 08D9AD1C; IDNOW Serial# BCCEAD1C; Influenza A Negative (Negative); Influenza B2 Negative (Negative)
[2022-11-06 13:44] VITALS: BP 124/88; PULSE 88; RESP 16; O2SAT 97
== END 2022-11-06 13:50 | disposition home or self-care (01) ==
PROVIDERS: Emergency Provider Emergency Medicine; PCP Internal Medicine
DX: J06.9 Acute upper respiratory infection, unspecified (principal); J30.2 Other seasonal allergic rhinitis; Z20.822 Contact with and (suspected) exposure to COVID-19; E78.5 Hyperlipidemia, unspecified; I10 Essential (primary) hypertension; Z79.899 Other long term (current) drug therapy
CPT/HCPCS: 71045; 87502; 87635; 93005; 99283; 99284

== ENCOUNTER 2023-11-11 08:14 | Emergency (ER) | payer SELFPAY ==
--- NOTE | ~2023-11-11 | XR_ITS ---
EXAMINATION: XR CHEST CLINICAL INFORMATION: Chest pain. COMPARISON: 11/06/2022 TECHNIQUE: 2 views of the chest were obtained. FINDINGS: The lungs are moderately expanded. No focal consolidation. Small 5 mm potential nodule projecting over the posterior right eighth rib. No pleural effusion. Cardiac silhouette is unchanged. XR/XR chest 2V IMPRESSION: No acute abnormality. Small 5 mm potential nodule projecting over the posterior right eighth rib. Consider dedicated chest CT for further characterization.
--- NOTE | 2023-11-11 08:16 | ECG_ITS ---
Test Reason : cp Blood Pressure : / mmHG Vent. Rate : 095 BPM Atrial Rate : 095 BPM P-R Int : 126 ms QRS Dur : 078 ms QT Int : 350 ms P-R-T Axes : 040 046 037 degrees QTc Int : 439 ms Normal sinus rhythm Normal ECG When compared with ECG of 06-NOV-2022 10:31, No significant change was found Referred By: Generic ED Physician Electronically Signed By:AMY HERNANDEZ MD
[2023-11-11 08:28] VITALS: BP 146/91; PULSE 103; RESP 19; TEMP 36.6; O2SAT 99; BMI 31.0
[2023-11-11 08:44] LABS: MANUAL DIFF FLAG NO
[2023-11-11 08:45] LABS: Basophils Absolute Auto 0.1 X10*3/uL (0.0-0.2); Basophils Percent Auto 0.8 % (0-2); Eosinophils Absolute Auto 0.4 X10*3/uL (0.0-0.4); Eosinophils Percent Auto 3.9 % (0-4); Hematocrit 46.1 % (42.0-52.0); Hemoglobin 15.8 g/dl (14.0-18.0); Imm Gran Abs Auto 0.07 X10*3/uL (0.00-0.03); Imm Gran Pct Auto 0.8 % (0.0-0.4); Lymphocytes Absolute Auto 1.9 X10*3/uL (1.2-4.9); Lymphocytes Percent Auto 20.6 % (20-40); Mean Corpuscular HGB Conc 34.3 g/dl (31.0-36.0); Mean Corpuscular Hemoglobin 30.3 pg (27.0-33.0); Mean Corpuscular Volume 88.5 fL (80.0-98.0); Monocytes Absolute Auto 0.5 X10*3/uL (0.1-1.2); Monocytes Percent Auto 5.7 % (2-11); Neutrophils Absolute Auto 6.2 x10*3/uL (2.0-8.3); Neutrophils Percent Auto 68.2 % (45-73); Platelet Count 259 X10*3/uL (160-400); Red Blood Count 5.21 X10*6/uL (4.60-5.80); Red Cell Distribution Width 11.9 % (11.0-16.0)
[2023-11-11 08:50] LABS: INTERNATIONAL NORM RATIO 1.1 (0.9-1.1); Prothrombin Time 12.9 SEC (11.1-13.3)
[2023-11-11 08:59] LABS: Anion Gap 13 (12-20); Blood Urea Nitrogen 11 mg/dL (9-16); Calcium 9.7 mg/dL (8.4-10.2); Carbon Dioxide 23 mmol/L (22-29); Chloride 105 mmol/L (96-108); Creatinine Clr Calc Pharmacy 108.3; Estimated Glomerular Filt Rate > 60; Glucose Random 178 mg/dL (60-115); Potassium 3.9 mmol/L (3.3-5.1); Sodium 137 mmol/L (135-145)
[2023-11-11 09:05] LABS: B Type Natriuretic Peptide < 10 pg/mL (<100)
[2023-11-11 09:11] LABS: Troponin-I High Sensitivity < 2.7 ng/L (<3.5-35.0)
--- NOTE | 2023-11-11 09:13 | ED.CHESTPAIN ---
HPI - Chest Pain General Chief Complaint: Chest Pain Stated Complaint: Diff breathing/Chest pain when coughing Time Seen by Provider: 11/11/23 09:13 Source: patient and family Mode of arrival: ambulatory Limitations: language barrier History of Present Illness HPI narrative: Patient is a 48-year-old male with history of childhood asthma presenting to the emergency department with complaint of cough and shortness of breath as well as chest pain with coughing since yesterday. Reports he has been having seasonal allergy symptoms over the past few weeks and has been taking multiple allergy medications at the same time including Lauryn, loratadine, Zyrtec, Benadryl. States while at work yesterday he felt palpitations. Denies chest pain at rest, states pain is only with coughing. Denies fevers. Denies any abdominal pain, nausea, vomiting, diarrhea. Denies any known sick contacts. Denies any lower extremity edema. Denies any recent calf pain or swelling. does report that patient has been out of his blood pressure medication for several months due to insurance issues. Onset (ago): hour(s) Onset: other (only with coughing) Pain radiation: none Context: recent illness Associated symptoms: cough Treatment prior to arrival: other Related Data Previous Rx's ?Medication ?Instructions ?Recorded acetaminophen 500 mg tablet 1,000 mg (2 x 500 mg) PO Q6H PRN 10/06/21 (Acetaminophen Extra Strength) pain #30 tabs ibuprofen 600 mg tablet 600 mg PO Q8H PRN pain #30 tabs 10/06/21 lisinopril 10 mg tablet 10 mg PO DAILY 90 days #90 tabs 08/07/22 fexofenadine 180 mg tablet 180 mg PO DAILY #30 tabs 11/06/22 (Lauryn Allergy) prednisone 20 mg tablet 40 mg (2 x 20 mg) PO DAILY 5 days 11/06/22 #10 tabs omeprazole 20 mg capsule,delayed 20 mg PO DAILY 90 days #90 caps 03/05/23 release albuterol sulfate 90 mcg/actuation 2 puff inhalation Q4-6H PRN 11/11/23 aerosol inhaler shortness of breath or wheezing #6.7 grams benzonatate 100 mg capsule 100 mg PO TID PRN cough #14 caps 11/11/23 Allergies Allergy/AdvReac Type Severity Reaction Status Date / Time enalaprilat [From VASOTEC] Allergy Severe ANAPHYLAXIS Verified 11/11/23 08:31 naproxen Allergy Unknown stomach Verified 11/11/23 08:31 upset tramadol [TRAMADOL] Allergy Unknown ANXIOUS, Verified 11/11/23 08:31 vomiting Review of Systems Review of Systems: As per HPI. Yes all other systems are reviewed and are negative Constitutional: Constitutional: Reports as per HPI [facility] Past Medical History Medical History Dyslipidemia Essential hypertension Headache HTN (hypertension) Surgical History No pertinent past surgical history Family History Family History Father Diabetes Hypertension Mother Diabetes Other Mental health disorder Substance use disorder Social History Social History Housing: Apartment Alcohol intake: never Patient Tobacco Use Status: Never used Tobacco e-Cigarette/Vaping Use: Never Used Second Hand Smoke Exposure: No Advance Directives: No Advance Directives Information Provided: No service: No Current occupational status: employed 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 Blood pressure elevated. Heart rate slightly tachycardic. Respiratory rate normal. Temperature normal. Oxygen saturation normal. Const: General: cooperative, healthy appearing and no acute distress Orientation/consciousness: oriented to person, oriented to place, oriented to time and patient oriented x3 Limitations: no limitations HEENT: Head: Yes normocephalic and Yes atraumatic Ears: external ears normal General nose exam: Normal external nose present Face and sinus: Yes face symmetric Mouth: oropharynx normal and moist mucous membranes Throat: Yes uvula midline Eyes: Pupils: Equal, round and reactive pupils present Neck: Neck: Yes normal visual inspection and Yes supple Resp: Effort & Inspection: normal respiratory effort and able to speak in complete sentences Auscultation: clear to auscultation bilaterally Cardio: Rate: regular rate Rhythm: regular rhythm Heart sounds: S1 normal heart sound present and S2 normal heart sound present GI: Palpation (GI): Soft to palpation and nontender Auscultation: normoactive bowel sounds : General: Yes no CVA tenderness Back/Spine/Pelvis: Back: no CVA tenderness Skin: General skin exam: elasticity normal and turgor normal Neuro: General: oriented to person, oriented to place, oriented to time, patient oriented x3, moves all extremities, no focal motor deficits and CN's II-XI intact bilaterally Cranial nerves: Yes Equal, round and reactive pupils present Cognition (Neuro): normal cognition Extrem: General: Yes full ROM, Yes capillary refill normal, Yes no pedal edema and Yes no calf tenderness Psych: Mental Status: mental status grossly normal Affect: normal affect Thought process: Normal thought process present Medical Decision Making Medical Decision Making MDM Narrative: Patient is a 48-year-old male with history of childhood asthma presenting to the emergency department with complaint of cough and shortness of breath as well as chest pain with coughing since yesterday. On exam patient is awake, A+Ox3, slightly tachycardic, BP elevated VS otherwise WNL, afebrile, normal neurological exam without focal deficits, physical exam findings as above. Given reported symptoms and physical exam findings, initial differential includes viral URI, Covid, flu, RSV, given that chest pain is only present during coughing, feel this is likely due to costochondritis or musculoskeletal pain. Unlikely ACS or CHF but will check troponin, BNP, chest x-ray. Labs notable for no leukocytosis, no significant electrolyte abnormalities, negative troponin, no elevation of BNP. Viral serology testing negative. EKG shows normal sinus rhythm. X-ray notable for no evidence of pneumonia, small nodule noted over 8th rib, advised patient to follow-up with his PCP regarding this for outpatient CT scan. My interpretation is in agreement with the radiologist's interpretation. Feel symptoms are likely due to viral URI and patient is stable for discharge home. Will prescribe benzonatate for cough and albuterol for shortness of breath and wheezing. Instructed patient follow-up with his primary care provider. Return precautions discussed at bedside. Patient verbalized understanding of and agreement with plan. Differential Diagnosis Differential Diagnoses: The differential diagnosis associated with the presentation includes As per [facility] Admission/Observation Consideration of admission/observation: Escalation of care including admission/observation considered Patient would have been admitted to the hospital had their work up had any findings where hospital admission was appropriate and their clinical presentation warranted hospital admission. Lab Data [facility] Lab Attestation statement: I reviewed the patient's lab results. As per [facility]. 11/11/23 08:40 11/11/23 08:40 Labs: Lab Results 11/11/23 Range/Units 08:40 WBC 9.0 (4.8-10.8) X10*3/uL RBC 5.21 (4.60-5.80) X10*6/uL Hgb 15.8 (14.0-18.0) g/dl Hct 46.1 (42.0-52.0) % MCV 88.5 (80.0-98.0) fL MCH 30.3 (27.0-33.0) pg MCHC 34.3 (31.0-36.0) g/dl RDW 11.9 (11.0-16.0) % Plt Count 259 (160-400) X10*3/uL MPV 9.0 L (9.4-12.4) fL Immature Gran % (Auto) 0.8 H (0.0-0.4) % Neut % (Auto) 68.2 (45-73) % Lymph % (Auto) 20.6 (20-40) % Sullivan % (Auto) 5.7 (2-11) % Eos % (Auto) 3.9 (0-4) % Baso % (Auto) 0.8 (0-2) % Lymph # (Auto) 1.9 (1.2-4.9) X10*3/uL Sullivan # (Auto) 0.5 (0.1-1.2) X10*3/uL Eos # (Auto) 0.4 (0.0-0.4) X10*3/uL Baso # (Auto) 0.1 (0.0-0.2) X10*3/uL Abs Immat Gran (auto) 0.07 H (0.00-0.03) X10*3/uL Absolute Neuts (auto) 6.2 (2.0-8.3) x10*3/uL Absolute Nucleated RBC 0.000 (0.0-0.012) X10*3/uL Nucleated RBC % (auto) 0.0 (0.0-0.2) /100WBC PT 12.9 (11.1-13.3) SEC INR 1.1 (0.9-1.1) Sodium 137 (135-145) mmol/L Potassium 3.9 (3.3-5.1) mmol/L Chloride 105 (96-108) mmol/L Carbon Dioxide 23 (22-29) mmol/L Anion Gap 13 (12-20) BUN 11 (9-16) mg/dL Creatinine 0.96 (0.5-1.4) mg/dL Estim Creat Clear Calc 108.3 Estimated GFR > 60 Random Glucose 178 H (60-115) mg/dL Calcium 9.7 (8.4-10.2) mg/dL Troponin I High Sens < 2.7 (<3.5-35.0) ng/L B-Natriuretic Peptide < 10 (<100) pg/mL Influenza Type A (PCR) NEGATIVE (Negative) Influenza Type B (PCR) NEGATIVE (Negative) RSV RNA Qual (PCR) NEGATIVE (Negative) SARS-CoV-2 RNA (RT-PCR) NEGATIVE (Negative) Independent Interpretation I performed an independent interpretation of an: EKG (Normal sinus rhythm, rate 95 beats per minute, normal MS interval and QTC.) and Plain X-Ray Interpretation: No evidence of pneumonia on CXR, 5mm nodule over 8th rib, will advise patient to obtain outpatient CT with PCP Radiology Impression Discussion of test interpretation with radiology: I have reviewed the radiologist's reading. Radiologist Impression: XR/XR chest 2V IMPRESSION: No acute abnormality. Small 5 mm potential nodule projecting over the posterior right eighth rib. Consider dedicated chest CT for further characterization. External Record Review External record reviewed: Inpatient record, Office record and Outpatient record Prescription Management I considered prescription management with: Other Discharge Plan Discharge Clinical Impression: Viral upper respiratory infection Patient Disposition: Home, Self-Care Instructions: Upper Respiratory Infection (DC), Viral Syndrome (ED) Additional Instructions: You were evaluated in the emergency department today for cough. Your Covid, flu, and strep tests were all negative. Your chest x-ray did not show evidence of pneumonia. A small (5mm) nodule was noted projecting over your 8th rib on the right side. It is recommended that you have a CT scan of the chest outpatient, please follow up with your primary care provider about this. Your symptoms are likely related to a viral illness which will resolve on its own with time and rest. You should ensure adequate fluid intake, and can use Tylenol 650 mg or ibuprofen 600 mg every 6 hours as needed for fever or discomfort. You are being prescribed benzonatate which you can take every 8 hours as needed for cough, it is important to keep this medication out of the reach of children. You are being prescribed an albuterol inhaler which can use every 4-6 hours as needed for shortness of breath. As discussed, you should not take more than 1 allergy medication at a time. Please follow-up with your primary care provider this week. Return to the emergency department if you develop chest pain, worsening shortness of breath, difficulty swallowing, fever 100.4? F or greater or any other concerning symptoms. Prescriptions: New benzonatate 100 mg capsule 100 mg PO TID PRN (Reason: cough) Qty: 14 0RF albuterol sulfate 90 mcg/actuation HFA aerosol inhaler 2 puff inhalation Q4-6H PRN (Reason: shortness of breath or wheezing) Qty: 6.7 0RF No Action lisinopril 10 mg tablet 10 mg PO DAILY 90 Days Qty: 90 3RF omeprazole 20 mg capsule,delayed release(DR/EC) 20 mg PO DAILY 90 Days Qty: 90 1RF fexofenadine [Lauryn Allergy] 180 mg tablet 180 mg PO DAILY Qty: 30 0RF prednisone 20 mg tablet 40 mg PO DAILY 5 Days Qty: 10 0RF acetaminophen [Acetaminophen Extra Strength] 500 mg tablet 1,000 mg PO Q6H PRN (Reason: pain) Qty: 30 0RF ibuprofen 600 mg tablet 600 mg PO Q8H PRN (Reason: pain) Qty: 30 0RF Stand Alone Forms: Work/School Release Print Language: Belarusian
[2023-11-11 09:24] LABS: Influenza A PCR NEGATIVE (Negative); Influenza B PCR NEGATIVE (Negative); Resp Syncy Virus RNA Qual PCR NEGATIVE (Negative); SARS COV2 PCR INHOUSE NEGATIVE (Negative)
[2023-11-11 10:48] VITALS: BP 143/95; PULSE 77; RESP 16; TEMP 36.5; O2SAT 95
[2023-11-11 14:15] VITALS: BP 143/95; PULSE 77; RESP 16; TEMP 36.5; O2SAT 95
== END 2023-11-11 10:55 | disposition home or self-care (01) ==
PROVIDERS: Emergency Provider Emergency Medicine; PCP Internal Medicine
DX: J06.9 Acute upper respiratory infection, unspecified (principal); R07.89 Other chest pain; R06.02 Shortness of breath; R05.9 Cough, unspecified; Z79.899 Other long term (current) drug therapy; Z11.52 Encounter for screening for COVID-19; Z20.822 Contact with and (suspected) exposure to COVID-19
CPT/HCPCS: 0241U; 36415; 71046; 80048; 83880; 84484; 85025; 85610; 93005; 99283; 99284

== ENCOUNTER → 2023-11-11 08:16 | Outpatient (BNV) | payer SELFPAY | PROVIDERS: Emergency Provider Emergency Medicine; PCP Internal Medicine; Visit Provider Internal Medicine Cardiovascular Disease | DX: R07.9 Chest pain, unspecified (principal) | CPT/HCPCS: 93010 ==

== ENCOUNTER 2024-06-11 08:33 | Emergency (ER) | payer OTHER, SELFPAY ==
[2024-06-11 09:12] VITALS: BP 148/99; PULSE 85; RESP 18; TEMP 36.8; O2SAT 97; BMI 28.6
--- NOTE | 2024-06-11 09:21 | ED_ITS ---
HPI - General Adult General Chief complaint: General Medical Stated complaint: high bp needs medication Time Seen by Provider: 06/11/24 09:30 Source: patient Limitations: language barrier History of Present Illness ED Provider: Tricia mcclendon PA-C HPI narrative: 49-year-old male with a history of hypertension hyperlipidemia presents requesting medication. Patient states he was without insurance, he now has he alth insurance, he has been out of his medications. Patient is requesting a medication refill. Related Data Previous Rx's ?Medication ?Instructions ?Recorded acetaminophen 500 mg tablet 1,000 mg (2 x 500 mg) PO Q6H PRN 10/06/21 (Acetaminophen Extra Strength) pain #30 tabs ibuprofen 600 mg tablet 600 mg PO Q8H PRN pain #30 tabs 10/06/21 lisinopril 10 mg tablet 10 mg PO DAILY 90 days #90 tabs 08/07/22 fexofenadine 180 mg tablet 180 mg PO DAILY #30 tabs 11/06/22 (Lauryn Allergy) prednisone 20 mg tablet 40 mg (2 x 20 mg) PO DAILY 5 days 11/06/22 #10 tabs omeprazole 20 mg capsule,delayed 20 mg PO DAILY 90 days #90 caps 03/05/23 release albuterol sulfate 90 mcg/actuation 2 puff inhalation Q4-6H PRN 11/11/23 aerosol inhaler shortness of breath or wheezing #6.7 grams benzonatate 100 mg capsule 100 mg PO TID PRN cough #14 caps 11/11/23 lisinopril 10 mg tablet 10 mg PO DAILY #30 tabs 06/11/24 Allergies Allergy/AdvReac Type Severity Reaction Status Date / Time enalaprilat [From VASOTEC] Allergy Severe ANAPHYLAXIS Verified 06/11/24 09:13 naproxen Allergy Unknown stomach Verified 06/11/24 09:13 upset tramadol [TRAMADOL] Allergy Unknown ANXIOUS, Verified 06/11/24 09:13 vomiting Review of Systems Review of Systems: Yes all other systems are reviewed and are negative Constitutional: Constitutional: Denies fatigue, Denies fever(s) and Denies headache(s) ENT: Denies headache(s) Cardiovascular: Cardiovascular: Denies chest pain and Denies dyspnea Respiratory: Respiratory: Denies dyspnea Gastrointestinal: Gastrointestinal: Denies nausea and Denies vomiting Neurologic: Denies headache(s) Endocrine: Endocrine: Denies fatigue [facility] Past Medical History Attestation statement: The following information was validated with the patient. Medical History Dyslipidemia Essential hypertension Headache HTN (hypertension) Surgical History No pertinent past surgical history Family History Family History Father Diabetes Hypertension Mother Diabetes Other Mental health disorder Substance use disorder Social History Social History Housing: Apartment Alcohol intake: never Patient Tobacco Use Status: Never used Tobacco e-Cigarette/Vaping Use: Never Used Second Hand Smoke Exposure: No Advance Directives: No Advance Directives Information Provided: Yes Do you have a plan to hurt others: No Plan service: No Current occupational status: employed 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 Cognitive needs: No Hearing needs: No Vision needs: Yes (glasses) Physical Exam ED Vital Signs: Vital Signs - 24 hr 06/11/24 09:12 Temperature 98.3 F Pulse Rate 85 Respiratory Rate 18 Blood Pressure 148/99 H Pulse Oximetry 97 Oxygen Delivery Method Room Air BMI result Body Mass Index 28.6 Const Other: Alert, well-appearing Orientation/consciousness: patient oriented x3 Resp Other: Nonlabored respirations Cardio Other: Normal peripheral perfusion Skin Other: Warm dry no rash Neuro General: patient oriented x3, gait normal, no focal motor deficits and CN's II- XI intact bilaterally Psych Other: Calm cooperative Medical Decision Making Medical Decision Making MDM Narrative: 49-year-old male with a history of hypertension hyperlipidemia presents requesting medication. Patient states he was without insurance, he now has health insurance, he has been out of his medications. Patient is requesting a medication refill. Problem: Age, hypertension, hyperlipidemia History: Per patient I have considered the following differential diagnoses: Hypertensive emergency, hypertensive urgency, end-organ damage Plan: Patient is asymptomatic, he is simply out of his medications, no need for imaging or labs. He is on lisinopril we will give him a month's supply. He is going to make an appointment with his prior primary care after this ER visit. Discharge Plan Discharge Clinical Impression: Hypertension Patient Disposition: Home, Self-Care Prescriptions: New lisinopril 10 mg tablet 10 mg PO DAILY Qty: 30 0RF No Action lisinopril 10 mg tablet 10 mg PO DAILY 90 Days Qty: 90 3RF omeprazole 20 mg capsule,delayed release(DR/EC) 20 mg PO DAILY 90 Days Qty: 90 1RF benzonatate 100 mg capsule 100 mg PO TID PRN (Reason: cough) Qty: 14 0RF albuterol sulfate 90 mcg/actuation HFA aerosol inhaler 2 puff inhalation Q4-6H PRN (Reason: shortness of breath or wheezing) Qty: 6.7 0RF fexofenadine [Lauryn Allergy] 180 mg tablet 180 mg PO DAILY Qty: 30 0RF prednisone 20 mg tablet 40 mg PO DAILY 5 Days Qty: 10 0RF acetaminophen [Acetaminophen Extra Strength] 500 mg tablet 1,000 mg PO Q6H PRN (Reason: pain) Qty: 30 0RF ibuprofen 600 mg tablet 600 mg PO Q8H PRN (Reason: pain) Qty: 30 0RF Print Language: Korean
[2024-06-11 09:31] VITALS: BP 148/99; PULSE 85; RESP 18; TEMP 36.8; O2SAT 97
== END 2024-06-11 09:32 | disposition home or self-care (01) ==
PROVIDERS: Emergency Provider Student in an Organized Health Care Education/Training Program; PCP Internal Medicine
DX: I10 Essential (primary) hypertension (principal); Z76.0 Encounter for issue of repeat prescription
CPT/HCPCS: 99282; 99283

== ENCOUNTER 2024-06-16 17:05 | Outpatient (AMB) | payer OTHER, SELFPAY ==
--- NOTE | 2024-06-16 17:19 | MHC.PC.OV ---
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: Patient has dentist HPI HPI Comments History of Present Illness Details The patient is a 49-year-old male presenting for his physical exam. Has never had a colonsocopy and has no family history of colon cancer. He prefers cologuard. Additionally, there is a concern about liver problems as the patient mentioned previous elevations in liver enzymes. These have not been quantified, and no specific symptoms of liver dysfunction such as jaundice or abdominal pain were noted at the time, but monitoring via laboratory testing is warranted. The patient has a history of well-controlled hypertension, for which he is on Lisinopril 10 mg daily. He reports no cardiovascular symptoms such as chest pain or shortness of breath. - Patient received tetanus vaccination in 2016, next due in 2026. - Discussed laboratory workup for cholesterol management. - Screening for colorectal cancer was discussed with options including home test kit (FIT). - Patient to schedule laboratory work for cholesterol and liver function tests. 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 1. Little interest or pleasure in doing things: not at all 2. Feeling down, depressed, or hopeless: not at all 3. Trouble falling or staying asleep, or sleeping too much: not at all 4. Feeling tired or having little energy: not at all 5. Poor appetite or overeating: not at all 6. Feeling bad about yourself - or that you are a failure or have let yourself or your family down: not at all 7. Trouble concentrating on things, such as reading the newspaper or watching television: not at all 8. Moving or speaking so slowly that other people could have noticed. Or the opposite - being so fidgety or restless that you have been moving around a lot more than usual: not at all 9. Thoughts that you would be better off or of hurting yourself in some way: not at all Total score: 0 Depression Screening Interpretation: Negative Depression Screening Done: Yes Source: Developed by Drs. Jameel Salas, Fatmata Garcia, Monster Alvarado and colleagues, with an educational senait from [employer]. Thrive Questionnaire Date Thrive assessed: 06/16/24 I am a: Patient What is your living situation today?: I have a steady place to live Within the past 12 months, did the food you bought not last and you didn't have the money to get more?: Never true Within the past 12 months, did you worry whether your food would run out before you got money to buy more?: Never true Do you have trouble paying for medicines?: No Do you have trouble getting transportation to medical appointments?: No Do you have trouble paying your heating and electricity bill?: No Do you have trouble taking care of your child, family member or friend?: No Do you have trouble with day-to-day activities such as bathing, preparing meals, shopping, managing finances, etc.?: No Are you currently unemployed and looking for a job?: No Are you interested in more education?: No Please select the resources that you would like help with: None Currently or been in a relationship where the following occur: No concerns reported THRIVE Score: 0 AUDIT C Alcohol Use Questionnaire (AUDIT-C) 1. How often do you have a drink containing alcohol?: Never Total Score: 0 SANDY-7 AMB Questionnaire SANDY-7 Date SANDY - 7 assessed: 06/16/24 Feeling nervous, anxious, or on edge: 0 = Not at all Not being able to stop or control worryin = Not at all Worrying too much about different things: 0 = Not at all Trouble relaxin = Not at all Being so restless that it is hard to sit still: 0 = Not at all Becoming easily annoyed or irritable: 0 = Not at all Feeling afraid as if something awful might happen: 0 = Not at all Total SANDY-7 score (0-4 normal; 5-9 mild; 10-14 moderate; 15-21 severe): 0 Source: Developed by Drs. Jameel Salas, Fatmata Garcia, Monster Alvarado and colleagues, with an educational senait from [employer]. Review of Systems Const All systems reviewed & are unremarkable except as noted in HPI and below Card Denies chest pain at rest, Denies chest pain with activity, Denies edema, Denies irregular heart rhythm, Denies claudication, Denies dyspnea, Denies dyspnea on exertion, Denies orthopnea, Denies paroxysmal nocturnal dyspnea and Denies slow heart rate Resp Denies cough, Denies dyspnea and Denies dyspnea on exertion GI Denies abdominal pain, Denies change in bowel habits, Denies excessive flatus, Denies nausea and Denies vomiting Denies urinary hesitancy, Denies urinary incontinence and Denies urinary urgency Musc Denies abnormal gait, Denies atrophy, Denies deformity and Denies limited range of motion Skin/Breast Denies bleeding lesions, Denies changing lesions and Denies rash Neuro Denies abnormal gait and Denies lack of coordination Physical exam (Primary Care) Vital Signs: Last Vital Signs BP 120/70 06/16/24 17:20 BMI result Body Mass Index 29.1 Tobacco/Smoking Status: Tobacco use Status Tobacco use date assessed 06/16/24 06/16/24 17:26 Patient Tobacco Use Status Never used Tobacco 06/16/24 17:26 e-Cigarette/Vaping Use Never Used 06/16/24 17:26 PHQ-9: PHQ-9 Score PHQ-9: Total score 0 06/16/24 18:06 Depression Screening Interpretation: Negative Thrive Assessment: Date of Thrive Assessment Date Thrive assessed 06/16/24 06/16/24 17:26 Currently or been in a relationship where the following occur: No concerns reported [facility] Head: Yes normal to inspection, Yes normocephalic and Yes atraumatic Ears: external ears normal Eyes General: appearance normal, both eyes and all related structures Eyelids: Yes eyelids normal Conjunctivae: conjunctivae normal Neck Neck: Yes normal visual inspection and Yes supple Resp Effort & Inspection: normal respiratory effort Auscultation: clear to auscultation bilaterally Cardio Jugular venous distension: no JVD Rate: regular rate Rhythm: regular rhythm Heart sounds: S1 normal heart sound present and S2 normal heart sound present GI Inspection: Yes normal to inspection Palpation (GI): Soft to palpation and nontender Auscultation: normal bowel sounds Skin General skin exam: no rashes or lesions noted Neuro General: no focal motor deficits Extrem General: Yes full ROM Psych Appearance: grossly normal Office Procedures Flu Questionnaire Does the patient have a severe egg allergy?: No Immunizations Fluarix Triv [id number] (PF) 45 mcg (15 mcg x 3)/0.5 mL IM syringe Performing Provider: Farzana Thompson MD [place] [facility] Documented (not given) by: LAURA Zhao on 06/16/24 17:28 Reason Not Given: Patient Refused Coding Level of Care Code Est Pt Prev Care 40-64y(91658) Diagnoses Physical exam Z00.00 Time Spent (min) 31 Assessment & Plan Assessment & Plan (1) Physical exam: Code(s): Z00.00 - Encounter for general adult medical examination without abnormal findings Category: Medical Plan - Allergy Management: Continued avoidance of Naproxen and Tramadol advised. Monitor for any new allergic reactions. - Hypertension: Continue Lisinopril 10 mg daily. Monitor blood pressure regularly. - Liver Function: Arrange for liver function panel to assess enzyme levels. Refer to gastroenterology if abnormalities persist. - Health Maintenance: Proceed with cholesterol panel checking and initiate colorectal cancer screening with either FIT kit mailed to home or schedule colonoscopy as preferred by patient. - Laboratory: Ensure laboratory testing is completed for cholesterol and liver function as planned. Patient was informed and verbally consented to the use of an ambient scribe for clinic note documentation during this visit. We discussed the importance of avoiding Naproxen and Tramadol due to the previous allergic reactions. I explained the plan to monitor his liver enzymes with laboratory tests to ensure no ongoing liver issues. We reviewed his history of hypertension and current treatment with Lisinopril, noting the potential need for adjustments based on lab results. Health maintenance, including colorectal cancer screening and cholesterol management, was also part of our discussion. For the colorectal cancer screening, options were provided, and the patient expressed interest in receiving the cologuard test kit. I also stressed the importance of regular follow-ups and lab assessments to maintain optimal health. Orders: Orders Influenza [id number] Immunization Today Z23 - Encounter for immunization Lipid Panel Today E78.5 - Hyperlipidemia, unspecified Comprehensive [place]. Panel Fast Today Z00.00 - Encounter for general adult medical examination without abnormal findings Referrals Cologuard Test Z12.11 - Encounter for screening for malignant neoplasm of colon, Z12.12 - Encounter for screening for malignant neoplasm of rectum Medications: Refilled omeprazole 20 mg PO DAILY 90 caps 1RF 90 days lisinopril 10 mg PO DAILY 30 tabs 0RF acetaminophen (Acetaminophen Extra Strength) 1,000 mg (2 x 500 mg) PO Q6H PRN 30 tabs 0RF pain M54.50 - Low back pain, unspecified ibuprofen 600 mg PO Q8H PRN 30 tabs 0RF pain M54.50 - Low back pain, unspecified Patient Instructions: - Avoid Naproxen and Tramadol. - Continue taking Lisinopril as prescribed. - Complete laboratory tests for liver function and cholesterol. - Use the Cologuard test kit for colorectal cancer screening as instructed. - Report any new symptoms or allergic reactions promptly. - Follow up as recommended for laboratory and screening results.
[2024-06-16 17:20] VITALS: BP 120/70; BMI 29.1
== END 2024-06-16 18:05 | disposition home or self-care (01) ==
PROVIDERS: PCP Internal Medicine; Visit Provider Internal Medicine
DX: Z23 Encounter for immunization (principal); Z00.00 Encounter for general adult medical examination without abnormal findings

== ENCOUNTER → 2024-06-16 17:05 | Outpatient (BNVA) | payer OTHER, SELFPAY | PROVIDERS: PCP Internal Medicine; Visit Provider Internal Medicine | DX: Z00.00 Encounter for general adult medical examination without abnormal findings (principal); I10 Essential (primary) hypertension; Z79.899 Other long term (current) drug therapy | CPT/HCPCS: 90471; 96127 ==